=== PATIENT | female | born 1970 | race Caucasian/White ===

== ENCOUNTER 2022-03-26 07:38 | Emergency (ER) | payer MEDICAID ==
[~2022-03-26] VITALS: Ht 167.6 cm; Wt 62.0 kg
[2022-03-26] MEDS ORDERED: NIRM1TAB PO (10:10)
[2022-03-26] MEDS ORDERED: BENZ100C86 MT (10:17)
[2022-03-26 10:34] VITALS: BP 131/73
== END 2022-03-26 10:34 | disposition home or self-care (01) ==
LOC: ER 09:28
DX: U07.1 COVID-19 (principal); E03.9 Hypothyroidism, unspecified; Z76.0 Encounter for issue of repeat prescription
CPT/HCPCS: 99281